=== PATIENT | female | born 1945 | race Two or more races ===

== ENCOUNTER 2018-11-19 10:24 | Outpatient (CLI) | payer OTHER ==
[~2018-11-19 10:24] MED LIST: AVALIDE 300/12.1 TAB; CATAFLAM50 MG PO; CIPRO500 MG PO; DOLOGEN CAPLET1 EACH PO; GLIMEPIRIDE4 MG; HUMULIN 70/30 V10 ML; INTESTINEX1 CAP PO; LOPRESSOR25 MG; NEURONTIN300 MG; PLETAL100 MG; PROTONIX40 M1; TOPROL XL25 M1; ULTRACET PO; URETRON D-S TAB1 TAB PO; URETRON DS1 TAB PO
== END 2018-11-19 10:38 | disposition home or self-care (01) ==
LOC: MAMO-SONO 10:24
DX: Z12.31 Encounter for screening mammogram for malignant neoplasm of breast (principal); Z87.898 Personal history of other specified conditions; N64.81 Ptosis of breast

== ENCOUNTER 2018-11-20 13:16 | Outpatient (CLI) | payer OTHER | END 2018-11-20 13:54 | disposition home or self-care (01) | LOC: NUCLEAR 13:16 | DX: M81.0 Age-related osteoporosis without current pathological fracture (principal) ==

== ENCOUNTER 2019-08-19 14:25 | Outpatient (CLI) | payer OTHER | END 2019-08-19 15:02 | disposition home or self-care (01) | LOC: TOM 14:25 | DX: C67.9 Malignant neoplasm of bladder, unspecified (principal) ==

== ENCOUNTER 2019-11-30 13:31 | Emergency (ER) | payer OTHER ==
[~2019-11-30] VITALS: Ht 152.4 cm; Wt 68.0 kg
[2019-11-30] MEDS ORDERED: AVAPRO300 MG PO (13:51)
[2019-11-30] MEDS ORDERED: FOSAMAX PLUS D1 EACH PO (13:52)
[2019-11-30] MEDS ORDERED: CILOSTAZOL100 MG PO (13:52)
[2019-11-30] MEDS ORDERED: ZOCOR40 MG PO (13:53)
== END 2019-11-30 20:21 | disposition home or self-care (01) ==
LOC: ER 13:31
DX: R60.0 Localized edema (principal)

== ENCOUNTER 2020-02-15 16:11 | Outpatient (CLI) | payer OTHER ==
[~2020-02-15 16:11] MED LIST changes: +AVAPRO300 MG PO; +CILOSTAZOL100 MG PO; +FOSAMAX PLUS D1 EACH PO; +ZOCOR40 MG PO
== END 2020-02-15 16:15 | disposition home or self-care (01) ==
LOC: RAD 16:11
PROVIDERS: ATTEND Internal Medicine Cardiovascular Disease
DX: D14.31 Benign neoplasm of right bronchus and lung (principal)

== ENCOUNTER 2020-04-18 08:00 | Outpatient (CLI) | payer OTHER | END 2020-04-18 08:10 | disposition home or self-care (01) | LOC: NUCLEAR 08:00 | PROVIDERS: ATTEND Internal Medicine Cardiovascular Disease | DX: R07.89 Other chest pain (principal) | CPT/HCPCS: 78452; 93017; A9500; J0153 ==

== ENCOUNTER → 2020-05-09 08:00 | Outpatient (CLI) | payer OTHER | END | disposition home or self-care (01) | LOC: PPH VACUNA 08:00 | PROVIDERS: ATTEND Emergency Medicine Pediatric Emergency Medicine | DX: Z23 Encounter for immunization (principal) ==

== ENCOUNTER 2020-07-18 07:49 | Outpatient (CLI) | payer OTHER | END 2020-07-18 07:58 | disposition home or self-care (01) | LOC: TOM 07:49 | PROVIDERS: ATTEND Internal Medicine Pulmonary Disease | DX: R91.1 Solitary pulmonary nodule (principal) ==

== ENCOUNTER 2020-08-18 08:58 | Emergency (ER) | payer OTHER ==
[~2020-08-18] VITALS: Ht 162.6 cm; Wt 69.9 kg
== END 2020-08-18 14:39 | disposition home or self-care (01) ==
LOC: ER 08:58
DX: G25.2 Other specified forms of tremor (principal); R53.81 Other malaise; F41.8 Other specified anxiety disorders

== ENCOUNTER 2021-04-02 10:01 | Emergency (ER) | payer OTHER ==
[~2021-04-02] VITALS: Ht 149.9 cm; Wt 64.0 kg
== END 2021-04-02 12:39 | disposition home or self-care (01) ==
LOC: ER 10:01
DX: S01.02XA Laceration with foreign body of scalp, initial encounter (principal); W01.118A Fall on same level from slipping, tripping and stumbling with subsequent striking against other sharp object, initial encounter; Y93.89 Activity, other specified; Y92.098 Other place in other non-institutional residence as the place of occurrence of the external cause; Y99.8 Other external cause status

== ENCOUNTER 2021-10-05 17:48 | Emergency (ER) | payer OTHER ==
[~2021-10-05] VITALS: Ht 157.5 cm; Wt 65.8 kg
== END 2021-10-05 22:51 | disposition home or self-care (01) ==
LOC: ER 17:48
DX: S06.0X1A Concussion with loss of consciousness of 30 minutes or less, initial encounter (principal); S14.109A Unspecified injury at unspecified level of cervical spinal cord, initial encounter; W19.XXXA Unspecified fall, initial encounter; Y93.9 Activity, unspecified; Y92.9 Unspecified place or not applicable; Y99.9 Unspecified external cause status

== ENCOUNTER 2021-10-08 19:26 | Inpatient (IN) | payer OTHER ==
[~2021-10-08] VITALS: Ht 152.4 cm; Wt 59.0 kg
== END 2021-10-15 16:41 | disposition home or self-care (01) | DRG 683 ==
LOC: ER 19:26 → MEDJ 10-09 18:57 → SEC-K 10-09 18:57 → MEDJ 10-09 19:18
PROVIDERS: ADMIT Internal Medicine; ATTEND Internal Medicine
PROC: 4A12X4Z Monitoring of Cardiac Electrical Activity, External Approach (ICD-10-PCS; 2021-10-10)
PROC: B24BZZZ Ultrasonography of Heart with Aorta (ICD-10-PCS; principal; 2021-10-12)
DX: N17.8 Other acute kidney failure (principal); G45.9 Transient cerebral ischemic attack, unspecified; R47.81 Slurred speech; I95.1 Orthostatic hypotension; E86.0 Dehydration; E87.8 Other disorders of electrolyte and fluid balance, not elsewhere classified; E11.9 Type 2 diabetes mellitus without complications; Z79.4 Long term (current) use of insulin; I10 Essential (primary) hypertension; F03.90 Unspecified dementia, unspecified severity, without behavioral disturbance, psychotic disturbance, mood disturbance, and anxiety
CPT/HCPCS: 70544

== ENCOUNTER 2022-01-13 15:46 | Emergency (ER) | payer OTHER ==
[~2022-01-13] VITALS: Ht 154.9 cm; Wt 57.6 kg
[2022-01-13] MEDS ORDERED: JARDIANCE10 MG PO (16:06)
[2022-01-13] MEDS ORDERED: VITAMIN B-150 MG PO (16:07)
== END 2022-01-13 19:29 | disposition home or self-care (01) ==
LOC: ER 15:46
DX: R05.8 Other specified cough (principal); E11.9 Type 2 diabetes mellitus without complications; Z79.4 Long term (current) use of insulin; I10 Essential (primary) hypertension; Z88.0 Allergy status to penicillin